=== PATIENT | female | born 1940 | race Caucasian/White ===

== ENCOUNTER 2021-05-19 14:34 | Outpatient (REF) | payer MEDICARE, SELFPAY ==
[2021-05-19 17:00] LABS: Blood Urea Nitrogen 16 mg/dL (9-16); Estimated Glomerular Filt Rate > 60
== END 2021-05-19 14:35 | disposition home or self-care (01) ==
LOC: HO.LAB 14:34
PROVIDERS: PCP Internal Medicine Geriatric Medicine; Referring Provider Internal Medicine Geriatric Medicine; Visit Provider Surgery
DX: R10.32 Left lower quadrant pain (principal); Z79.899 Other long term (current) drug therapy
CPT/HCPCS: 36415; 82565; 84520; 99202

== ENCOUNTER 2021-06-15 08:52 | Outpatient (REF) | payer MEDICARE, SELFPAY ==
--- NOTE | ~2021-06-15 | CT_ITS ---
EXAMINATION: CT ABDOMEN AND PELVIS WITH CONTRAST CLINICAL INFORMATION: Left lower quadrant pain COMPARISON: Previous pelvic ultrasound August 2018 TECHNIQUE: Multidetector volumetric images were obtained from the superior aspect of the liver through the pubic symphysis following administration 85 mL of Omnipaque 350 intravenous contrast. Sagittal and coronal reformatted images were obtained on the technologist's workstation. Oral contrast: Yes This CT examination was performed using dose optimization techniques as appropriate, variously including the following: *Automated exposure control *Adjustment of mA and/or kV according to patient size (this includes techniques or standardized protocols for targeted exams where dose is matched to indication/reason for exam; i.e. extremities or head) *Use of iterative reconstruction technique DLP: 320 mGy-cm FINDINGS: LUNG BASES: The visualized lung bases are unremarkable. LIVER, GALLBLADDER, AND BILIARY TREE: The liver is normal in size, shape, and attenuation. No focal hepatic lesion or biliary ductal dilatation is present. The gallbladder is identified and has presumably been removed. PANCREAS: Unremarkable. SPLEEN: Unremarkable. ADRENAL GLANDS: Unremarkable. KIDNEYS AND URETERS: There are small bilateral low-attenuation renal lesions measuring 3 to 4 mm. These are difficult to characterize due to small size. Probably represent small cysts. Kidneys are otherwise unremarkable. BLADDER: Unremarkable. GASTROINTESTINAL TRACT: There is diverticulosis of the colon. No evidence of diverticulitis is seen. Small and large bowel is otherwise unremarkable. The appendix is not identified with certainty. No inflammatory changes are seen in the right lower quadrant. The stomach is unremarkable. ABDOMINAL WALL: No significant hernia is appreciated. LYMPH NODES: Normal. VASCULAR: There is evidence of atherosclerotic disease. No aneurysm is seen. PELVIC VISCERA: There is a 4 x 5 cm simple-appearing right adnexal cyst. This is increased in size from 3 x 3.3 x 3.6 cm on pelvic ultrasound August 2018. Uterus is been removed. The left adnexa is unremarkable. 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 CT/CT abdomen pelvis w con IMPRESSION: Diverticulosis of the colon. No evidence of diverticulitis. 4 x 5 cm simple-appearing right adnexal cyst. This is increased in size from previous pelvic ultrasound August 2018. Small bilateral low-attenuation renal lesions difficult to characterize due to small size but probably represent small cysts.
[2021-06-15] MEDS: iohexoL 350 MG/ML 100 ML INFUS..BTL IV (09:48)
== END 2021-06-15 08:53 | disposition home or self-care (01) ==
LOC: HO.CT 08:52
PROVIDERS: Visit Provider Surgery
DX: R10.32 Left lower quadrant pain (principal)
CPT/HCPCS: 74177; Q9967

== ENCOUNTER → 2021-06-21 10:35 | Outpatient (BNVA) | payer MEDICARE, SELFPAY | PROVIDERS: PCP Internal Medicine Geriatric Medicine; Referring Provider Internal Medicine Geriatric Medicine; Visit Provider Surgery | DX: R10.32 Left lower quadrant pain (principal) | CPT/HCPCS: 99212 ==

== ENCOUNTER 2021-10-26 15:17 | Outpatient (REF) | payer MEDICARE, SELFPAY ==
--- NOTE | ~2021-10-26 | US_ITS ---
EXAMINATION: US SOFT TISSUE NECK CLINICAL INFORMATION: Left neck along COMPARISON: None TECHNIQUE: Ultrasound of the neck soft tissues is performed with high- frequency parker-scale imaging and color Doppler. FINDINGS: There is a heterogeneous appearing complex predominantly solid lesion in the midline neck above the thyroid gland. This measures 3.1 2.8 x 1.4 cm in sagittal, transverse and AP dimension. This appears avascular. Ultrasound appearance is nonspecific. This does not correspond to a normal-appearing lymph node. Complex thyroglossal duct cyst and mass should be considered. US/US soft tiss head and/or neck IMPRESSION: Heterogeneous predominantly solid neck mass superior to the thyroid gland. Ultrasound appearance is nonspecific. Complex thyroglossal duct cyst and mass should be considered. Follow-up CT or MR of the neck with contrast is recommended for further characterization.
== END 2021-10-26 15:18 | disposition home or self-care (01) ==
LOC: HO.HMGCX 15:17
PROVIDERS: PCP Internal Medicine Geriatric Medicine; Visit Provider Internal Medicine Geriatric Medicine
DX: R22.1 Localized swelling, mass and lump, neck (principal)
CPT/HCPCS: 76536

== ENCOUNTER 2021-12-02 12:15 | Outpatient (REF) | payer MEDICARE, SELFPAY ==
--- NOTE | ~2021-12-02 | CT_ITS ---
EXAMINATION: CT SOFT TISSUE NECK WITHOUT AND WITH CONTRAST CLINICAL INFORMATION: Evaluate soft tissue abnormality. COMPARISON: Ultrasound neck from 10/26/2021. TECHNIQUE: Before and after intravenous administration of 60 mL of Omnipaque 350 contrast helical imaging was performed in the axial plane with generation of coronal and sagittal reformatted images. This CT examination was performed using dose optimization techniques as appropriate, variously including the following: *Automated exposure control *Adjustment of mA and/or kV according to patient size (this includes techniques or standardized protocols for targeted exams where dose is matched to indication/reason for exam; i.e. extremities or head) *Use of iterative reconstruction technique DLP: 496 mGy-cm FINDINGS: There is a multilobulated predominant fat attenuation mass embedded within the strap musculature at the site of the palpable abnormality, spanning from the level of the thyroid cartilage superiorly to the hyoid bone. Superiorly, a small portion of the lesion protrudes along the undersurface of the hyoid bone. The lesion measures 3.3 x 2.8 x 2 cm in size. There is some mild wispy soft tissue attenuation within the lesion and a couple of internal septations anteroinferiorly. The parotid and submandibular glands appear normal. No contour abnormality or pathologic enhancement is seen within the oral cavity or pharyngeal mucosal space. The larynx is normal. The thyroid gland is mildly heterogeneous with small nodular lesions. Scattered cervical lymph nodes are present without pathologic enlargement. The carotid sheath vasculature opacifies normally with mild atherosclerotic wall calcifications. There are mild degenerative changes of the temporomandibular joints. A reversal of the normal cervical lordosis is evident with moderate disc space narrowing and endplate spurring at the C6-C7 level. There is exuberant facet arthropathy at various levels of the cervical spine as well. No acute osseous abnormality is seen. The craniovertebral junction is normal. There is focal mucosal thickening opacifying a posterior left ethmoid air cell extending into the pneumatized left optic strut. The remaining paranasal sinuses are fairly well aerated. The mastoid air cells are clear. Leftward nasal septal deviation noted. The patient is status post bilateral lens extractions. The imaged portions of the brain demonstrate no acute abnormality. Dental hardware is in place. The visualized portions of the lungs are fairly well aerated with minimal subsegmental atelectatic changes. The visualized mediastinum is normal. There are significant degenerative changes of the sternoclavicular articulations. CT/CT soft tissue neck wo/w con IMPRESSION: Multilobulated and somewhat heterogeneous fatty lesion in the midline strap musculature at the site of the palpable abnormality measuring 3.3 x 2.8 x 2 cm in size. 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 No cervical adenopathy.
[2021-12-02 12:59] LABS: Blood Urea Nitrogen 22 mg/dL (9-16); Estimated Glomerular Filt Rate > 60
[2021-12-02] MEDS: iohexoL 350 MG/ML 100 ML INFUS..BTL IV (14:41)
== END 2021-12-02 12:16 | disposition home or self-care (01) ==
LOC: HO.CT 12:15
PROVIDERS: PCP Internal Medicine Geriatric Medicine; Visit Provider Internal Medicine Geriatric Medicine
DX: Q89.2 Congenital malformations of other endocrine glands (principal); R22.1 Localized swelling, mass and lump, neck
CPT/HCPCS: 36415; 70492; 82565; 84520; Q9967

== ENCOUNTER → 2022-02-09 09:16 | Outpatient (BNVA) | payer MEDICARE, SELFPAY | PROVIDERS: PCP Internal Medicine Geriatric Medicine; Visit Provider Internal Medicine Cardiovascular Disease | DX: Z01.810 Encounter for preprocedural cardiovascular examination (principal); E11.9 Type 2 diabetes mellitus without complications; I10 Essential (primary) hypertension; R06.02 Shortness of breath | CPT/HCPCS: 99202 ==

== ENCOUNTER → 2022-02-11 11:10 | Outpatient (REF) | payer OTHER, SELFPAY ==
--- NOTE | 2022-02-11 11:18 | CA_ITS ---
Transthoracic Echocardiogram Patient (Last, First, Middle): Claudia Ferreira, Gender: Female Date of : 1940 Age: 81 Procedure Date: 02/11/2022 Procedure Type: Transthoracic Echocardiogram Location: OP Height: 142.24 cm Weight: 61.24 kg BSA: 1.50 m2 Heart Rate: bpm BP: 126 / 60 mmHg Dental Office Manager: SAMI Referring MD: Chaparro Girard MD Symptoms: Z01.810 - Encounter for preprocedural cardiovascular exam... Study Quality: Fair ECG Rhythm: Sinus Conclusions: - The left ventricular systolic function is normal. The calculated ejection fraction is 61% by biplane method. - No obvious valvular pathology seen on this study. Findings Left Ventricle Normal left ventricular cavity size. There is normal left ventricular wall thickness. The left ventricular systolic function is normal. The calculated ejection fraction is 61% by biplane method. There is no evidence of regional wall motion abnormalities. Diastolic function is normal for age. Right Ventricle Normal right ventricular cavity size and systolic function. Atria Both atria are normal in size. Aortic Valve There is a normal trileaflet aortic valve. There is no aortic valve stenosis. There is trace (trivial) aortic valve regurgitation. Mitral Valve There is mild anterior mitral leaflet thickening. There is no mitral valve regurgitation. There is no mitral valve stenosis. Pulmonic Valve There is trace pulmonic valve regurgitation. Tricuspid Valve Normal tricuspid valve structure. There is trace tricuspid valve regurgitation. The pulmonary artery systolic pressure is normal. Great Vessels The aortic annulus, sinuses of valsalva, asc aorta, and aortic arch are normal in size. Venous The inferior vena cava is normal in size and collapses greater than 50% with inspiration. Pericardium/Pleural There is no evidence of pericardial effusion. Prior Study Comparison No prior study available for comparison. Recommendations, Care & Conclusions No obvious valvular pathology seen on this study. Measurements 2D Linear Measurements IVSd: 0.91 0.6-0.9/0.6-1.0 cm LVIDd: 4.43 3.9-5.3/4.2-5.9 cm LVIDd Index: 2.95 2.4-3.2/2.2-3.1 cm/m2 LVIDs: 2.58 2.0-3.6 cm LVPWd: 0.94 0.7-1.1 cm LA Diam: 3.50 2.7-3.8/3.0-4.0 cm LAIDs Index: 2.33 1.5-2.3 cm/m2 LV Mass: 167.29 67-162/88-224 g LV Mass Index: 111.52 43-95/49-115 g/m2 LVOT Diam: 1.90 3.0+(-)1.3 cm 2D Systolic Function EF 4C: 57.90 >55% EF 2C: 63.70 >55% EF BiP: 61.20 >55% Mitral Valve MV Pk E: 0.63 MV PK A: 0.87 MV Decel Time: 275.00 E/A: 0.70 E'Lateral: 6.74 E'Medial: 7.07 E/E' Med: 9.00 E/E' Lat: 9.40 PHT: 80.00 MVA PHT: 2.75 Decel Morrison: 2.31 Aortic Valve AoV Pk Rodolfo: 1.54 AoV Mn Rodolfo: 1.11 AoV VTI: 0.33 AoV Pk Grad: 9.00 Aov Mn Grad: 5.00 JONAH Cont.VTI: 1.91 LVOT LVOT Pk Rodolfo: 0.90 LVOT Mn Rodolfo: 0.65 LVOT VTI: 0.22 LVOT Pk Grad: 3.00 LVOT Mn Grad: 2.00 LVOT Diam: 1.90 LVOT Area: 2.84 Diastolic Function MV Pk E: 0.63 MV Pk A: 0.87 E/A: 0.70 E'Medial: 7.07 E/E' Med: 9.00 E' Laterial: 6.74 E/E' Lat: 9.40 Right Ventricle TAPSE (mm): 24.80 TVS' Rodolfo: 11.30 Tricuspid Valve TR Pk Rodolfo: 2.17 TR Pk Grad: 19.00 RA Press: 3.00 RVSP: 22.00 Great Vessels Aorta Sinus of Valsalva: 2.77 2.0-3.[address] Ridge: 2.43 1.7-3.4 cm Ao Asc: 3.20 2.1-3.4 cm Ao Arch: 2.90 Updated in Other Vendor System with Status of Final Isreal Sigala MD electronically signed on 02/13/2022 12:03:34 PM with status of Final
== END ==
LOC: HO.CARD 11:10
PROVIDERS: Visit Provider Internal Medicine Cardiovascular Disease
DX: Z01.810 Encounter for preprocedural cardiovascular examination (principal)
CPT/HCPCS: 93306

== ENCOUNTER → 2022-02-15 08:49 | Outpatient (REF) | payer OTHER, SELFPAY ==
--- NOTE | ~2022-02-15 | NM_ITS ---
EXERCISE MYOCARDIAL PERFUSION STUDY INDICATION: Preoperative cardiovascular evaluation TECHNIQUE: The patient was brought in for an exercise perfusion study on 02/15/2022. Patient performed exercise as per Melvin protocol and was injected 25 mCi of sestamibi once target heart rate was achieved. Images were obtained using the SPECT gamma camera interlaced with the gating device. Images were obtained in supine position. Resting perfusion study was performed on 02/17/2022. Patient was administered 25 mCi of sestamibi intravenously at rest. Images were then obtained in supine position. Total DLP 85mGy-cm. Images were processed with the software and compared side to side in short axis, horizontal long axis and vertical long axis views. FINDINGS: Raw images were reviewed. The stress perfusion study showed mildly diminished tracer uptake along the basal part of inferior wall. There is improvement with CT attenuation correction, suggestive of diaphragmatic attenuation artifact. The gated study shows normal LV systolic function with calculated LVEF of 74%. LV cavity is normal in size. The gated study shows normal wall thickening and contraction of segments. Resting study shows no significant perfusion abnormality. Gating at rest reveals normal wall motion with ejection fraction at 64%. The findings are consistent with mild reversible perfusion defect in the basal to mid inferior wall, but suspected to be from diaphragmatic attenuation artifact. NM/NM cardiolite stress test IMPRESSION: 1. Myocardial perfusion imaging study shows likely normal myocardial perfusion. 2. Gated LVEF is 74% during stress and 64% during rest. 3. Transient ischemic dilatation not present. EKG component of the test reported separately.
--- NOTE | 2022-02-15 08:54 | CA_ITS ---
Acquisition Time: 2022-02-15 09:13:04 Total Exercise Time: 00:05:01 Test Indications: PREOP Medications: SEE CHART Protocol: VANCE Max HR: 148 BPM 107% of Pred: 138 BPM Max BP: 146/078 mmHG Max Work Load: 6.0 METS Exercise stress test with exercise 5 min 1 sec of Vance protocol ( at 3.5 min exercise speed reduced to 2.2 MPH) achieving 107% MPHR, 6 METs, without anginal symptoms, with isolated PAC and one atrial cuplet, with normotensive response to exercise, without EKG changes meeting criteria for ischemia, with incomplete RBBB at baseline with development of RBBB during exercise and in recovery. Nuclear images pending. Test reviewed with Dr Frank. Referred By: Chaparro Girard Overread By: ARON MCMULLEN
== END ==
LOC: HO.CARD 08:49
PROVIDERS: PCP Internal Medicine Geriatric Medicine; Visit Provider Internal Medicine Cardiovascular Disease
DX: Z01.810 Encounter for preprocedural cardiovascular examination (principal); R07.9 Chest pain, unspecified
CPT/HCPCS: 78452; 93017; A9500

== ENCOUNTER 2022-11-24 13:49 | Outpatient (REF) | payer OTHER, SELFPAY ==
--- NOTE | 2022-11-24 10:30 | EMG_ITS ---
Right median and ulnar motor and sensory studies were performed. Right radial sensory studies were performed, and paraspinal muscles were tested with a needle. IMPRESSION: 1. [id number] right median neuropathy across carpal tunnel. 2. Mild right ulnar neuropathy across cubital tunnel. 3. Chronic right mid cervical radiculopathy. MD SARAH Montoya/ASHLI / [id number]
== END 2022-11-24 13:50 | disposition home or self-care (01) ==
LOC: HO.NEURO 13:49
PROVIDERS: Visit Provider Internal Medicine Geriatric Medicine
DX: M79.641 Pain in right hand (principal)
CPT/HCPCS: 95886; 95909

== ENCOUNTER 2023-01-16 10:57 | Outpatient (REF) | payer OTHER, SELFPAY ==
[2023-01-16 11:01] VITALS: BMI 28.1
[2023-01-16 11:07] VITALS: BP 175/73; PULSE 80; RESP 17; TEMP 36.1; O2SAT 98
== END 2023-01-16 10:58 | disposition home or self-care (01) ==
LOC: HO.MS 10:57
PROVIDERS: PCP Internal Medicine Geriatric Medicine; Visit Provider Ophthalmology
DX: H02.822 Cysts of right lower eyelid (principal)
CPT/HCPCS: 88304

== ENCOUNTER → 2023-01-31 13:56 | Outpatient (BNVA) | payer OTHER, SELFPAY | PROVIDERS: PCP Internal Medicine Geriatric Medicine; Visit Provider Orthopaedic Surgery | DX: G56.01 Carpal tunnel syndrome, right upper limb (principal); G56.21 Lesion of ulnar nerve, right upper limb; M54.12 Radiculopathy, cervical region; M65.331 Trigger finger, right middle finger | CPT/HCPCS: 99202 ==

== ENCOUNTER 2023-02-13 11:10 | Day surgery (SDC) | payer OTHER, SELFPAY ==
--- NOTE | 2023-02-13 10:52 | W.PM.OPN ---
Operative Note Operative Note Date of Service: 02/13/23 Narrative: Preop diagnosis: 1. Right Carpal tunnel syndrome 2. Right middle finger trigger finger Postop diagnosis: same Procedure: 1. Right Carpal tunnel release 2. Right middle finger trigger release Surgeon: Estelle Bahena MD Anesthesia: local block using 1% lidocaine with epinephrine Findings: Thickened transverse carpal ligament. No locking and catching after A1 shiva release. EBL: Less than 5 mL Specimens: None Complications: None Disposition: Brought to recovery room in stable condition Plan: Follow-up for 10-14 days for wound check and suture removal Indications: The patient is 82 years old, with right carpal tunnel syndrome and a right middle finger trigger finger that have been unresponsive to nonoperative management. The risks and benefits of operative treatment including but not limited to risk of damage to blood vessels, nerves, tendons, infection, persistent pain, persistent symptoms, or possible need for additional surgery were discussed with the patient and the patient wishes to proceed with surgery. Procedure: Once consent was obtained a local block was performed using a combination of 1% lidocaine with epinephrine. The patient was then brought back to the operating suite and placed on the operative table in supine position. The right upper extremity was prepped and draped in a standard surgical fashion. Once assured that we had a good block, a 2.0 cm longitudinal incision was made centered over the carpal tunnel. The incision was made through the skin to the subcutaneous tissues using a #15 blade. Dissection was made down to the level of the transverse carpal ligament with care being taken to protect the palmar cutaneous nerve. Once the transverse carpal ligament was clearly visualized, a longitudinal incision was made in the transverse carpal ligament 1st using a #15 blade, then using tenotomy scissors under direct visualization. Care was taken to look for and protect the motor branch of the median nerve when seen in this area. Once assured that we had a good block, a 1.5 cm oblique incision was made centered over the A1 shiva of the right middle finger . The incision was made through the skin to the subcutaneous tissues using a #15 blade. Careful dissection was made down to the level of the A1 shiva using tenotomy scissors, with care being taken to protect the nearby neurovascular structures. A longitudinal incision was made in the A1 shiva 1st using a #15 blade, then using tenotomy scissors under direct visualization. The A1 shiva was noted to be thickened. Following our A1 shiva release, we no longer saw any locking or catching of the digit with flexion and extension. Once satisfied with our carpal tunnel and trigger finger releases the wounds were copiously irrigated with normal saline and hemostasis was obtained with a brief period of local pressure. The skin edges were reapproximated with some 5.0 nylon suture material and a sterile dressing was applied. The patient appears to have tolerated the procedure well and with no complications. All digits were well vascularized at the conclusion of the case.
[2023-02-13 12:27] VITALS: BP 153/50; PULSE 74; RESP 16; TEMP 36.7; O2SAT 97; BMI 25.4
[2023-02-13 16:09] VITALS: BP 152/60; PULSE 76; RESP 18; O2SAT 95
== END 2023-02-13 16:10 | disposition home or self-care (01) ==
PROVIDERS: PCP Internal Medicine Geriatric Medicine; Visit Provider Orthopaedic Surgery
PROC: (CPT 64721; principal; 2023-02-13 12:20)
PROC: (CPT 26055; 2023-02-13 12:20)
DX: G56.01 Carpal tunnel syndrome, right upper limb (principal); M65.331 Trigger finger, right middle finger; R20.0 Anesthesia of skin; R20.2 Paresthesia of skin; E11.9 Type 2 diabetes mellitus without complications; E78.5 Hyperlipidemia, unspecified; Z88.8 Allergy status to other drugs, medicaments and biological substances; Z88.4 Allergy status to anesthetic agent; Z98.890 Other specified postprocedural states
CPT/HCPCS: 64721; 26055; J0171

== ENCOUNTER → 2023-02-28 10:35 | Outpatient (BNVA) | payer OTHER, SELFPAY | PROVIDERS: PCP Internal Medicine Geriatric Medicine; Visit Provider Orthopaedic Surgery | DX: M65.331 Trigger finger, right middle finger (principal); G56.01 Carpal tunnel syndrome, right upper limb; G56.21 Lesion of ulnar nerve, right upper limb | CPT/HCPCS: 99212 ==

== ENCOUNTER 2023-04-11 10:45 | Outpatient (AMB) | payer OTHER, SELFPAY ==
--- NOTE | 2023-04-11 11:00 | MHC.OFFVIS ---
Intake Intake Visit Reasons: Postop-R CTR & MF Trig Rel. 02/13/23 AR Intake Note: Claudia 82 yr old female presents today for her PO Right CT& MF Trig Rel. 02/13/[address] Bahena range of motion check. Patient reports improvement with ROM, she continues working with OT and at home exercises. She has concerns of pain in the dorsal aspect of wrist that radiates up her arm. Allergies morphine [MORPHINE] Allergy (Intermediate, Verified 04/11/23 11:04) FAINTING ANESTHESIA Allergy (Severe, Uncoded 04/11/23 11:04) Vomiting HPI Postop-R CTR & MF Trig Rel. 02/13/23 AR HPI Details Claudia is an 82 year old right hand dominant woman who presents for a follow-up of her right hand stiffness. She is S/P right carpal tunnel release & middle trigger finger release, DOS: 02/13/23. She has been seeing Hand therapy for stiffness in her right hand, but this has been improving with ROM exercises & OT hand therapy. She says her sensation has been improving, but is not quite normal. She no longer has any locking or catching.?? PFSH Medical History Diabetes type 2, uncontrolled Dyslipidemia LLQ pain Surgical History History of appendectomy History of cholecystectomy History of colon surgery History of hysterectomy Social History Alcohol intake: never Patient Tobacco Use Status: Never used Tobacco Advance Directives Date on File: 01/16/23 Physical Exam Const General: no acute distress and alert Orientation/consciousness: patient oriented x3 Neuro General: patient oriented x3 Extrem Other: The patient was alert oriented and in no acute distress The incision is well-healed with no erythema drainage or evidence of infection. She can make a fist and extend al her digits. She says she has some mild discomfort from stiffness when bringing her middle fingertip down to touch her palm. She has an ~5 degree flexion contracture of the middle finger PIP joint, which I think is chronic Of note on the DOS she was able to make a full fist and extend all her digits Sensation is improved but not quite normal in the median nerve distribution Cap refill is brisk Nerve Conduction study: IMPRESSION:? 1. Awynvotk-hx-hfrtqz right median neuropathy across carpal tunnel. 2. Mild right ulnar neuropathy across cubital tunnel. 3. Chronic right mid cervical radiculopathy. ? 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 Right Carpal tunnel syndrome, S/P release Pre-operative symptoms intermittent, but daily, worse at night Post-operative symptoms improved but not quite normal 2. Right middle trigger finger, S/P release With good resolution of his 3. Right hand stiffness She has improved with OT hand therapy and ROM exercises at home I recommend she continue with OT hand therapy and her home exercises Follow-up prn 4. Right Cubital tunnel syndrome, mild Normal sensation today in clinic, and no complaints 5. Right cervical radiculopathy, chronic Seen on NCS Scribed for Estelle Bahena MD by Cody Carr, medical appliance maker, on 04/11/23 at 11:15 AM, EST. 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
== END 2023-04-11 11:21 | disposition home or self-care (01) ==
PROVIDERS: PCP Internal Medicine Geriatric Medicine; Visit Provider Orthopaedic Surgery
DX: G56.01 Carpal tunnel syndrome, right upper limb (principal); G56.21 Lesion of ulnar nerve, right upper limb; M54.12 Radiculopathy, cervical region; M65.331 Trigger finger, right middle finger
CPT/HCPCS: 99024

== ENCOUNTER → 2023-04-11 10:45 | Outpatient (BNVA) | payer OTHER, SELFPAY | PROVIDERS: PCP Internal Medicine Geriatric Medicine; Visit Provider Orthopaedic Surgery ==

== ENCOUNTER 2023-04-17 11:00 | Outpatient (RCR) | payer OTHER, SELFPAY ==
--- NOTE | 2023-04-17 11:32 | MHC.OT.DC ---
[address] [phone] F: [phone] Occupational Therapy Discharge Note Patient Name: Claudia Ferreira Provider: Dr Estelle Bahena Diagnosis: Right CTR Right midddle finger trigger release Date of Surgery: 02/13/23 Date of Evaluation: 03/21/23 Date of Discharge: 04/17/23 Treatments to Date: 5 Discharge Status: Improved Function Independent with HEP Patient Elected to Stop Discharge Summary: Claudia is now about 2 months s/p right CTR and trigger finger release. She is doing well, pain free or low pain w/ activities and good follow through w/ HEP including stretching, strengthening and scar management. She has regained most range, still some loss of digit flexion and extension, but has continued to make gains and reports good functional use of hand/arm. She is choosing at this time to continue on her own with HEP and I anticipate she will do well. Electronically Signed By: AMOL Adams/Ladonna CHT Reviewed/agree with student documentation: Therapist: Please Sign and return to therapist, thank you for your referral.
== END 2023-04-17 11:32 | disposition home or self-care (01) ==
LOC: HO.OT 11:00
PROVIDERS: PCP Internal Medicine Geriatric Medicine; Visit Provider Orthopaedic Surgery
DX: M65.331 Trigger finger, right middle finger (principal); G56.01 Carpal tunnel syndrome, right upper limb
CPT/HCPCS: 97035; 97110; 97166

== ENCOUNTER 2023-06-19 09:37 | Outpatient (REF) | payer OTHER, SELFPAY ==
--- NOTE | ~2023-06-19 | XR_ITS ---
STUDY: Right shoulder, bilateral knees INDICATION: Chronic right shoulder pain, decreased range of motion chronic pain bilateral knees COMPARISON: None TECHNIQUE: 4 view right shoulder, 4 views each knee FINDINGS: Right shoulder: Mild degenerative changes acromioclavicular joint. Glenohumeral joint is maintained. Patchy demineralization right humeral head. No fracture or dislocation. Visualized ribs and lung are unremarkable. Right knee: No significant joint space narrowings. Chondrocalcinosis. No fracture or dislocation. No significant joint effusion. Left knee: No fracture or dislocation. Small suprapatellar effusion. Chondrocalcinosis. Joint spaces are maintained. XR/XR knee LT 4V IMPRESSION: Mild degenerative change right shoulder. Bilateral knee chondrocalcinosis. Small left suprapatellar effusion.
--- NOTE | ~2023-06-19 | XR_ITS ---
STUDY: Right shoulder, bilateral knees INDICATION: Chronic right shoulder pain, decreased range of motion chronic pain bilateral knees COMPARISON: None TECHNIQUE: 4 view right shoulder, 4 views each knee FINDINGS: Right shoulder: Mild degenerative changes acromioclavicular joint. Glenohumeral joint is maintained. Patchy demineralization right humeral head. No fracture or dislocation. Visualized ribs and lung are unremarkable. Right knee: No significant joint space narrowings. Chondrocalcinosis. No fracture or dislocation. No significant joint effusion. Left knee: No fracture or dislocation. Small suprapatellar effusion. Chondrocalcinosis. Joint spaces are maintained. XR/XR knee RT 4V IMPRESSION: Mild degenerative change right shoulder. Bilateral knee chondrocalcinosis. Small left suprapatellar effusion.
--- NOTE | ~2023-06-19 | XR_ITS ---
STUDY: Right shoulder, bilateral knees INDICATION: Chronic right shoulder pain, decreased range of motion chronic pain bilateral knees COMPARISON: None TECHNIQUE: 4 view right shoulder, 4 views each knee FINDINGS: Right shoulder: Mild degenerative changes acromioclavicular joint. Glenohumeral joint is maintained. Patchy demineralization right humeral head. No fracture or dislocation. Visualized ribs and lung are unremarkable. Right knee: No significant joint space narrowings. Chondrocalcinosis. No fracture or dislocation. No significant joint effusion. Left knee: No fracture or dislocation. Small suprapatellar effusion. Chondrocalcinosis. Joint spaces are maintained. XR/XR shoulder RT min 2V IMPRESSION: Mild degenerative change right shoulder. Bilateral knee chondrocalcinosis. Small left suprapatellar effusion.
[2023-06-19 11:39] LABS: MANUAL DIFF FLAG NO
[2023-06-19 12:10] LABS: Basophils Absolute Auto 0.1 X10*3/uL (0.0-0.2); Basophils Percent Auto 0.8 % (0-2); Eosinophils Absolute Auto 0.3 X10*3/uL (0.0-0.4); Eosinophils Percent Auto 4.4 % (0-4); Hematocrit 39.6 % (37.0-47.0); Hemoglobin 13.1 g/dl (12.0-16.0); Imm Gran Abs Auto 0.03 X10*3/uL (0.00-0.03); Imm Gran Pct Auto 0.5 % (0.0-0.4); Lymphocytes Absolute Auto 2.2 X10*3/uL (1.2-4.9); Mean Corpuscular HGB Conc 33.1 g/dl (31.0-35.0); Mean Corpuscular Hemoglobin 30.2 pg (27.0-33.0); Mean Corpuscular Volume 91.2 fL (80.0-98.0); Mean Platelet Volume 10.2 fL (9.4-12.3); Monocytes Absolute Auto 0.3 X10*3/uL (0.1-1.2); Monocytes Percent Auto 4.6 % (2-11); Neutrophils Absolute Auto 3.6 x10*3/uL (2.0-8.3); Neutrophils Percent Auto 55.7 % (45-73); Platelet Count 441 X10*3/uL (160-400); Red Blood Count 4.34 X10*6/uL (4.20-5.50); White Blood Count 6.5 X10*3/uL (4.8-10.8)
[2023-06-19 13:03] LABS: Alanine Aminotransferase 14 U/L (0-31); Albumin Level 4.2 g/dL (3.5-5.0); Alkaline Phosphatase 95 U/L (39-117); Anion Gap 15 (12-20); Aspartate Amino Transferase 16 U/L (5-31); Bilirubin Total 0.2 mg/dL (0.0-1.0); Blood Urea Nitrogen 19 mg/dL (9-16); Calcium 10.4 mg/dL (8.4-10.2); Carbon Dioxide 23 mmol/L (22-29); Chloride 105 mmol/L (96-108); Cholesterol 242 mg/dL (<200); Estimated Glomerular Filt Rate > 60; Glucose Random 135 mg/dL (60-115); HDL Cholesterol 61 mg/dL (>40); LDL Cholesterol Calculated 144 mg/dL (<100); Potassium 4.8 mmol/L (3.3-5.1); Sodium 138 mmol/L (135-145); Total Protein 7.9 g/dL (6.5-8.0); Triglycerides 185 mg/dL (<150); Vitamin D 25-OH Total 54.3 ng/mL (>30)
[2023-06-19 13:23] LABS: Creatinine Urine 53.28 mg/dL; Microalbumin Urine < 5.0 mg/L
== END 2023-06-19 09:38 | disposition home or self-care (01) ==
LOC: HO.HHCL 09:37
PROVIDERS: Visit Provider Internal Medicine Geriatric Medicine
DX: E11.69 Type 2 diabetes mellitus with other specified complication (principal); M25.561 Pain in right knee; M25.562 Pain in left knee; M25.511 Pain in right shoulder; G89.29 Other chronic pain; E55.9 Vitamin D deficiency, unspecified
CPT/HCPCS: 36415; 73030; 73564; 80053; 80061; 82043; 82306; 82570; 85025

== ENCOUNTER 2023-08-21 14:18 | Outpatient (REF) | payer OTHER, SELFPAY ==
[2023-08-21 16:40] LABS: Anion Gap 15 (12-20); Blood Urea Nitrogen 17 mg/dL (9-16); Calcium 10.5 mg/dL (8.4-10.2); Carbon Dioxide 25 mmol/L (22-29); Chloride 102 mmol/L (96-108); Estimated Glomerular Filt Rate > 60; Glucose Random 128 mg/dL (60-115); Sodium 137 mmol/L (135-145)
[2023-08-22 10:22] LABS: Calcium (PTHI) 10.3 mg/dL (8.6-10.4); PTHI 21 pg/mL (16-77)
== END 2023-08-21 14:19 | disposition home or self-care (01) ==
LOC: HO.HHCL 14:18
PROVIDERS: Visit Provider Internal Medicine Geriatric Medicine
DX: E83.52 Hypercalcemia (principal)
CPT/HCPCS: 36415; 80048; 83970

== ENCOUNTER 2024-07-19 14:32 | Outpatient (REF) | payer OTHER, SELFPAY ==
--- NOTE | ~2024-07-19 | XR_ITS ---
EXAMINATION: XR CHEST CLINICAL INFORMATION: Cough 3 months. COMPARISON: X-ray 05/10/2016 TECHNIQUE: 2 views of the chest were obtained. FINDINGS: Pacemaker with leads extending to the right atrium and right ventricle. Cardiac and mediastinal silhouette is within normal limits. Low lung volumes. There is mild bronchial wall thickening. No effusion, edema. No pneumothorax is seen. No acute osseous abnormality. In bilateral lower lungs. No dense consolidation. XR/XR chest 2V IMPRESSION: Bronchial wall thickening can be seen with a small airway process such as asthma or atypical/viral infections. Electronically signed by: Noam Pantoja MD 07/19/2024 04:29 PM EDT
== END 2024-07-19 14:33 | disposition home or self-care (01) ==
LOC: HO.HHCX 14:32
PROVIDERS: Visit Provider Internal Medicine Geriatric Medicine
DX: R05.2 Subacute cough (principal); J34.89 Other specified disorders of nose and nasal sinuses
CPT/HCPCS: 71046